=== PATIENT | male | born 1985 | race Asian ===

== ENCOUNTER 2021-01-13 08:44 | Emergency (ER) | payer SELFPAY ==
[2021-01-13 09:17] VITALS: BP 156/102
--- NOTE | 2021-01-13 11:17 | Ultrasound Report ---
ULTRASOUND SCROTUM INDICATION / CLINICAL INFORMATION: acute pain. COMPARISON: None available. FINDINGS -- RIGHT TESTIS: Size = 4.7 x 2.7 x 3.5 cm. - Appearance: No significant abnormality. - Cyst or Mass: None. - Color Doppler Flow: No significant abnormality. EPIDIDYMIS: 8 mm epididymal head cyst. Additional small cyst is present within the epididymal body. No significant hyperemia of the epididymis. HYDROCELE: Trace. VARICOCELE: None demonstrated. FINDINGS -- LEFT Left testicle is surgically absent. No significant cystic or solid mass in the operative bed. ADDITIONAL FINDINGS: None. IMPRESSION: 1. Nonspecific trace right hydrocele. No acute abnormality identified. No evidence of torsion or test icle/epididymis inflammation. 2. Subcentimeter epididymal cysts. 3. Left testicle is absent. Signer Name: Jonathan Burnham MD Signed: 01/13/2021 11:12 AM Workstation Name: [id number]
[2021-01-13 12:24] LABS: Bilirubin,Urine NEG (Negative); Blood,Urine LG (Negative); Color,Urine Yellow (Yellow); Mucus,Urine FEW /HPF; Urobilinogen,Urine < 2.0 mg/dL (<2.0)
[2021-01-13 12:25] LABS: Protein,Urine >500 mg/dL (Negative); RBC,Urine > 182.0 /HPF (0.0-6.0)
[2021-01-13] MEDS ORDERED: ONDANSETRON 4 MG ODT TAB PO ONE (12:38)
[2021-01-13] MEDS ORDERED: oxyCODONE /ACETAMINOPHEN 5-325MG TAB PO ONE (12:38)
--- NOTE | 2021-01-13 12:58 | Emergency Department Report ---
ED General Adult HPI - General Chief complaint: Urogenital-Male Stated complaint: BACK PAIN Time Seen by Provider: 01/13/21 12:10 Source: patient Mode of arrival: Ambulatory Limitations: No Limitations - History of Present Illness Initial comments: 35-year-old -[place] Citizen male patient with history of hypertension presents with complaints of sudden onset right/mid back pain and right testicular pain starting yesterday. He does report urinary frequency and blood in his urine today. No history of kidney stones per patient. He denies any fever/c hills/sweats, chest pain, shortness of breath, difficulty moving his spine, nausea/vomiting/diarrhea, or right lower quadrant pain. He rates his current pain as a 7/10 in severity. Pain intermittently worsens. No testicular swelling, penile discharge, or genital lesions per patient. -: Sudden Severity scale (0 -10): 7 - Related Data Previous Rx's Medication Instructions Recorded Last Taken Type HYDROcodone/APAP 10-325 [[place] 1 each PO Q6HR PRN #10 tablet 01/13/21 Unknown Rx 10/325] Ketorolac [Toradol] 10 mg PO Q6H PRN #10 tablet 01/13/21 Unknown Rx Ondansetron [Zofran ODT TAB] 8 mg PO Q8HR PRN #15 tab.rapdis 01/13/21 Unknown Rx Tamsulosin [Flomax] 0.4 mg PO QDAY #5 cap 01/13/21 Unknown Rx Allergies Allergy/AdvReac Type Severity Reaction Status Date / Time No Known Allergies Allergy Unverified 01/13/21 09:17 ED Review of Systems ROS: Stated complaint: BACK PAIN Other details as noted in HPI Constitutional: denies: chills, fever, malaise, weakness Respiratory: denies: cough, shortness of breath Cardiovascular: denies: chest pain Gastrointestinal: abdominal pain. denies: nausea, vomiting Genitourinary: frequency, hematuria. denies: dysuria, discharge, testicular ma ss Musculoskeletal: back pain. denies: joint swelling Skin: denies: lesions, change in color Neurological: denies: headache, numbness, paresthesias ED Past Medical Hx - Past Medical History Previous Medical History?: Yes Hx Hypertension: Yes - Surgical History Past Surgical History?: Yes Additional Surgical History: One testicle removed about a year ago - Medications Home Medications: Home Medications Medication Instructions Recorded Confirmed Last Taken Type HYDROcodone/APAP 10-325 [[place] 1 each PO Q6HR PRN #10 tablet 01/13/21 Unknown Rx 10/325] Ketorolac [Toradol] 10 mg PO Q6H PRN #10 tablet 01/13/21 Unknown Rx Ondansetron [Zofran ODT TAB] 8 mg PO Q8HR PRN #15 tab.rapdis 01/13/21 Unknown Rx Tamsulosin [Flomax] 0.4 mg PO QDAY #5 cap 01/13/21 Unknown Rx ED Physical Exam - General Limitations: No Limitations General appearance: alert, in no apparent distress, obese (morbid) - Head Head exam: Present: atraumatic, normocephalic - Eye Eye exam: Present: normal appearance - Respiratory Respiratory exam: Absent: respiratory distress - Cardiovascular Cardiovascular Exam: Present: regular rate, normal rhythm. Absent: systolic murmur, diastolic murmur, rubs, gallop - GI/Abdominal GI/Abdominal exam: Present: soft, tenderness (Mild right-sided tenderness), normal bowel sounds. Absent: distended, guarding, rebound, rigid - Expanded GI/Abdominal Exam Expanded GI/Abdominal exam: Absent: Booth's sign, tenderness at Mcburney's Point - Back Exam Back exam: Present: full ROM, CVA tenderness (R). Absent: paraspinal tenderness, vertebral tenderness - Neurological Exam Neurological exam: Present: alert, oriented X3, normal gait - Psychiatric Psychiatric exam: Present: normal affect, normal mood - Skin Skin exam: Present: warm, dry, intact, normal color. Absent: rash ED Course Vital Signs 01/13/21 08:59 Temperature 98.7 F Pulse Rate 77 Respiratory 18 Rate Blood Pressure 156/102 [Right] O2 Sat by Pulse 96 Oximetry ED Medical Decision Making - Lab Data Result diagrams: 01/13/21 12:42 01/13/21 12:42 - Radiology Data Radiology results: report reviewed ULTRASOUND SCROTUM INDICATION / CLINICAL INFORMATION: acute pain. COMPARISON: None available. FINDINGS -- RIGHT TESTIS: Size = 4.7 x 2.7 x 3.5 cm. - Appearance: No significant abnormality. - Cyst or Mass: None. - Color Doppler Flow: No significant abnormality. EPIDIDYMIS: 8 mm epididymal head cyst. Additional small cyst is present within the epididymal body. No significant hyperemia of the epididymis. HYDROCELE: Trace. VARICOCELE: None demonstrated. FINDINGS -- LEFT Left testicle is surgically absent. No significant cystic or solid mass in the operative bed. ADDITIONAL FINDINGS: None. IMPRESSION: 1. Nonspecific trace right hydrocele. No acute abnormality identified. No evidence of torsion or testicle/epididymis inflammation. 2. Subcentimeter epididymal cysts. 3. Left testicle is absent. CT ABDOMEN AND PELVIS WITHOUT IV CONTRAST INDICATION: r flank pain, hematuria, lower back pain. COMPARISON: None available. TECHNIQUE: All CT scans at this facility use dose modulation, automated exposure control, iterative reconstruction or weight based dosing, when appropriate, to reduce radiation dose to as low as reasonably achievable. FINDINGS: Lung Bases: No significant abnormality. Skeletal System: No acute abnormality. ABDOMEN: Liver: Mild steatosis. Gallbladder: No significant abnormality. Bile Ducts: No significant abnormality. Pancreas: No significant abnormality. Spleen: No significant abnormality. Adrenals: No significant abnormality. Right Kidney: There is minimal right hydroureteronephrosis. There is mild asymmetric right perinephric stranding. Left Kidney: No significant abnormality. Upper GI tract: No significant abnormality. Lymph Nodes: No significant adenopathy. Aorta: No significant abnormality. Additional Findings: No significant abnormality. PELVIS: Colon: No acute abnormality. Urinary Bladder and Distal Ureters: There is a 2-3 mm stone in the distal right ureter on series 2 image 179. Urinary bladder is collapsed, limiting its evaluation. Appendix: No significant abnormality. Lymph Nodes: No significant adenopathy. Additional Findings: None. IMPRESSION: 1. 2-3 mm distal right ureteral stone with very mild right hydroureteronephrosis. No intrarenal stones are seen bilaterally. 2. Incidental findings, as above. - Medical Decision Making 35-year-old -[place] Citizen male patient with history of hypertension presents with complaints of sudden onset right/mid back pain and right testicular pain starting yesterday. He does report urinary frequency and blood in his urine today. No history of kidney stones per patient. He denies any fever/chills/sweats, chest pain, shortness of breath, difficulty moving his spine, nausea/vomiting/diarrhea, or right lower quadrant pain. He rates his current pain as a 7/10 in severity. Pain intermittently worsens. No testicular swelling, penile discharge, or genital lesions per patient. No significant abnormalities noted on CBC or CMP. UA shows >182 RBCs. Right CVA tenderness on exam noted. CT without contrast shows 2 to 3 mm right distal ureteral stone with mild hydronephrosis. Kidney function is normal CMP. We will treat expectantly with Flomax, pain meds, and nausea medicine. Patient to follow-up with urology. Patient is well-appearing, ambulatory, his pain is controlled, he is stable for discharge home. Discussed signs symptoms that should prompt immediate return to the emergency department in detail patient verbalized understanding. Critical care attestation.: If time is entered above; I have spent that time in minutes in the direct care of this critically ill patient, excluding procedure time. ED Disposition Clinical Impression: Right kidney stone Disposition: DC-01 TO HOME OR SELFCARE Is pt being admited?: No Condition: Stable Instructions: Kidney Stones Prescriptions: Tamsulosin [Flomax] 0.4 mg PO QDAY #5 cap HYDROcodone/APAP 10-325 [[place] 10/325] 1 each PO Q6HR PRN #10 tablet PRN Reason: Pain , Severe (7-10) Ketorolac [Toradol] 10 mg PO Q6H PRN #10 tablet PRN Reason: Pain Ondansetron [Zofran ODT TAB] 8 mg PO Q8HR PRN #15 tab.rapdis PRN Reason: Nausea Referrals: DIONNE BARRIENTOS MD [Staff Physician] - 2-3 Days
--- NOTE | 2021-01-13 13:44 | Cat Scan Report ---
CT ABDOMEN AND PELVIS WITHOUT IV CONTRAST INDICATION: r flank pain, hematuria, lower back pain. COMPARISON: None available. TECHNIQUE: All CT scans at this facility use dose modulation, automated exposure control, iterative reconstructi on or weight based dosing, when appropriate, to reduce radiation dose to as low as reasonably achieva ble. FINDINGS: Lung Bases: No significant abnormality. Skeletal System: No acute abnormality. ABDOMEN: Liver: Mild steatosis. Gallbladder: No significant abnormality. Bile Ducts: No significant abnormality. Pancreas: No significant abnormality. Spleen: No significant abnormality. Adrenals: No significant abnormality. Right Kidney: There is minimal right hydroureteronephrosis. There is mild asymmetric right perinephri c stranding. Left Kidney: No significant abnormality. Upper GI tract: No significant abnormality. Lymph Nodes: No significant adenopathy. Aorta: No significant abnormality. Additional Findings: No significant abnormality. PELVIS: Colon: No acute abnormality. Urinary Bladder and Distal Ureters: There is a 2-3 mm stone in the distal right ureter on series 2 im age 179. Urinary bladder is collapsed, limiting its evaluation. Appendix: No significant abnormality. Lymph Nodes: No significant adenopathy. Additional Findings: None. IMPRESSION: 1. 2-3 mm distal right ureteral stone with very mild right hydroureteronephrosis. No intrarenal ston es are seen bilaterally. 2. Incidental findings, as above. Signer Name: Mahin Batista MD Signed: 01/13/2021 1:39 PM Workstation Name: [id number]
[2021-01-13 13:55] LABS: Basophils % (Auto) 0.4 % (0.0-1.8); Eosinophils % (Auto) 0.5 % (0.0-4.3); Hematocrit 42.1 % (35.5-45.6); Hemoglobin 13.8 gm/dl (11.8-15.2); Lymphocytes # (Auto) 1.2 K/mm3 (1.2-5.4); Lymphocytes % (Auto) 14.2 % (13.4-35.0); Mean Corpuscular HGB Conc 33 % (32-34); Mean Corpuscular Volume 79 fl (84-94); Monocytes # (Auto) 0.8 K/mm3 (0.0-0.8); Monocytes % (Auto) 9.2 % (0.0-7.3); Platelet Count 183 K/mm3 (140-440); Red Blood Count 5.36 M/mm3 (3.65-5.03); Red Cell Distribution Width 14.7 % (13.2-15.2)
[2021-01-13 14:00] LABS: Alanine Aminotransferase 96 units/L (7-56); Albumin 3.8 g/dL (3.9-5); BUN/Creatinine Ratio 15; Blood Urea Nitrogen 17 mg/dL (9-20); Calcium 8.8 mg/dL (8.4-10.2); Hemolysis Index 9
== END 2021-01-13 14:16 | disposition home or self-care (01) ==
LOC: ED 08:44
DX: N20.0 Calculus of kidney (principal); M54.5 Low back pain; N50.811 Right testicular pain; I10 Essential (primary) hypertension; Z79.899 Other long term (current) drug therapy
CPT/HCPCS: 36415; 74176; 80053; 81001; 85025; 93975; 93976; 99284; Q0162